=== PATIENT | male | born 1995 | race Caucasian/White ===

== ENCOUNTER → 2017-03-17 | Outpatient (CLI) | payer OTHER | LOC: FIMAGING 06:58 | PROVIDERS: ATTEND Family Medicine | DX: R10.84 Generalized abdominal pain (principal) ==

== ENCOUNTER 2017-09-05 03:02 | Emergency (ER) | payer OTHER ==
[2017-09-05] MEDS ORDERED: HYDROmorphONE/DILAUDID 1 MG/ML INJ IVP ONE (03:08)
[2017-09-05] MEDS ORDERED: ONDANSETRON 4 MG/2 ML VIAL IVP ONE (03:08)
[2017-09-05] MEDS ORDERED: NS 1,000 ML IV ONE ×3 (03:08→04:34)
--- NOTE | 2017-09-05 03:08 | EDPHY ---
H & P Stated Complaint: N/V/D x12 hours, abd pain HPI/ROS: HPI CHIEF COMPLAINT: Nausea vomiting diarrhea HISTORY OF PRESENT ILLNESS: This patient very pleasant 22-year-old male, he is otherwise healthy no significant medical history does not take any medications he presents emergency room nausea vomiting diarrhea times 12 hr. Patient reports around 4:00 p.m. yesterday he developed some nausea and vomiting. He initially had watery diarrhea that then developed into nausea vomiting. No hematemesis. He denies any fever. He states he has had some crampy abdominal pain diffusely but this has gotten better. He still complains of nausea states that he vomits once per hour usually on the hour. Unable to keep p.o. down. Last meal was yesterday. Does additionally reports some burning in his chest when he vomits. Past Medical History: No significant medical history Past Surgical History: Tonsillectomy/adenoidectomy Social History: Denies daily use drugs alcohol tobacco products. [employer] student. Family History: Noncontributory ROS REVIEW OF SYSTEMS: A comprehensive 10 point review of systems is otherwise negative aside from elements mentioned in the history of present illness. Exam Constitutional appears nontoxic, however appears dehydrated triage nursing summary reviewed, vital signs reviewed, awake/alert. Vital signs noted to be tachycardic and somewhat hypotensive at triage. Eyes normal conjunctivae and sclera, EOMI, PERRLA. HENT normal inspection, atraumatic, dry mucus membranes, no epistaxis, neck supple/ no meningismus, no raccoon eyes. Respiratory clear to auscultation bilaterally, normal breath sounds, no respiratory distress, no wheezing. Cardiovascular rate normal, regular rhythm, no murmur, no edema, distal pulses normal. Gastrointestinal soft, non-tender, no rebound, no guarding, normal bowel sounds, no distension, no pulsatile mass. Genitourinary no CVA tenderness. Musculoskeletal no midline vertebral tenderness, full range of motion, no calf swelling, no tenderness of extremities, no meningismus, good pulses, neurovascularly intact. Skin pink, warm, & dry, no rash, skin atraumatic. Neurologic awake, alert and oriented x 3, AAOx3, moves all 4 extremities equally, motor intact, sensory intact, CN II-XII intact, normal cerebellar, normal vision, normal speech. Psychiatric normal mood/affect. Heme/Lymph/Immune no lymphadenopathy. Differential Diagnosis: Includes but is not limited to in a particular order acute dehydration, acute nausea vomiting and diarrhea illness, enteritis, viral syndrome, electrolyte disturbance, doubt bowel obstruction, doubt acute appendicitis Medical Decision Making: Plan for this patient IV establishment with IV fluid bolus 2 L normal saline, 4 mg IV Zofran for nausea, check basic blood work, including electrolytes, urinalysis, and CBC and re-evaluate. Re-evaluation: [id number]: Patient feeling much better after IV fluids he said 3 L of normal saline here. Zofran. Blood work was reviewed is reassuring. His abdomen is soft nontender. He is not vomiting. He would like to go home. Prescription prescription for Zofran. He p.o. challenge well. Return precautions given. I do not feel that he needs any imaging was abdomen is abdomen is soft nontender is not on any ongoing vomiting. He does not have high white count. Most likely has some GI illness. Return precautions discussed and he understands. Source: Patient - Personal History Current Tetanus/Diphtheria Vaccine: Yes - Medical/Surgical History Hx Asthma: No Hx Chronic Respiratory Disease: No Hx Diabetes: No Hx Cardiac Disease: No Hx Renal Disease: No Hx Cirrhosis: No Hx Alcoholism: No Hx HIV/AIDS: No Hx Splenectomy or Spleen Trauma: No Other PMH: thyroid problems, - Social History Smoking Status: Never smoked Constitutional: Initial Vital Signs Temperature (C) 37.1 C 09/05/17 03:04 Heart Rate 115 H 09/05/17 03:04 Respiratory Rate 18 09/05/17 03:04 Blood Pressure 95/65 L 09/05/17 03:04 O2 Sat (%) 95 09/05/17 03:04 O2 Delivery Mode Nasal Cannula O2 (L/minute) 2 Allergies/Adverse Reactions: No Known Allergies Allergy (Unverified 09/05/17 03:07) Home Medications: Medication Instructions Recorded Ondansetron HCl [Zofran] 4 mg PO Q4-6PRN PRN #10 tablet 09/05/17 Medical Decision Making - Data Points Laboratory Results: Laboratory Results 09/05/17 03:23 09/05/17 03:23 09/05/17 09/05/17 09/05/17 04:58 03:23 03:23 WBC 9.42 10^3/uL 10^3/uL (3.80-9.50) RBC 5.30 10^6/uL 10^6/uL (4.40-6.38) Hgb 16.8 g/dL g/dL (13.7-17.5) Hct 46.6 % % (40.0-51.0) MCV 87.9 fL fL (81.5-99.8) MCH 31.7 pg pg (27.9-34.1) MCHC 36.1 g/dL g/dL (32.4-36.7) RDW 11.5 % % (11.5-15.2) Plt Count 176 10^3/uL 10^3/uL (150-400) MPV 11.6 fL fL (8.7-11.7) Neut % (Auto) 93.7 % H % (39.3-74.2) Lymph % (Auto) 2.1 % L % (15.0-45.0) [place] % (Auto) 3.7 % L % (4.5-13.0) Eos % (Auto) 0.0 % L % (0.6-7.6) Baso % (Auto) 0.3 % % (0.3-1.7) Nucleat RBC Rel Count 0.0 % % (0.0-0.2) Absolute Neuts (auto) 8.82 10^3/uL H 10^3/uL (1.70-6.50) Absolute Lymphs (auto) 0.20 10^3/uL L 10^3/uL (1.00-3.00) Absolute Monos (auto) 0.35 10^3/uL 10^3/uL (0.30-0.80) Absolute Eos (auto) 0.00 10^3/uL L 10^3/uL (0.03-0.40) Absolute Basos (auto) 0.03 10^3/uL 10^3/uL (0.02-0.10) Absolute Nucleated RBC 0.00 10^3/uL 10^3/uL (0-0.01) Immature Gran % 0.2 % % (0.0-1.1) Immature Gran # 0.02 10^3/uL 10^3/uL (0.00-0.10) Sodium 145 mEq/L H mEq/L (134-144) Potassium 4.5 mEq/L mEq/L (3.5-5.2) Chloride 104 mEq/L mEq/L (97-110) Carbon Dioxide 24 mEq/l mEq/l (22-31) Anion Gap 17 mEq/L H mEq/L (8-16) BUN 22 mg/dL mg/dL (7-23) Creatinine 1.2 mg/dL mg/dL (0.7-1.3) Estimated GFR > 60 Glucose 115 mg/dL H mg/dL (70-100) Calcium 10.0 mg/dL mg/dL (8.5-10.4) Total Bilirubin 1.3 mg/dL mg/dL (0.1-1.4) Conjugated Bilirubin 0.4 mg/dL mg/dL (0.0-0.5) Unconjugated Bilirubin 0.9 mg/dL mg/dL (0.0-1.1) AST 44 IU/L IU/L (17-59) ALT 51 IU/L IU/L (21-72) Alkaline Phosphatase 83 IU/L IU/L (38-126) Total Protein 8.1 g/dL g/dL (6.3-8.2) Albumin 4.9 g/dL g/dL (3.5-5.0) Lipase 47 IU/L IU/L (23-300) Urine Color YELLOW Urine Appearance MODERATELY TURBID Urine pH 5.0 (5.0-7.5) Ur Specific [place] 1.029 (1.002-1.030) Urine Protein NEGATIVE (NEGATIVE) Urine Ketones 1+ H (NEGATIVE) Urine Blood NEGATIVE (NEGATIVE) Urine Nitrate NEGATIVE (NEGATIVE) Urine Bilirubin NEGATIVE (NEGATIVE) Urine Urobilinogen NEGATIVE EU EU (0.2-1.0) Ur Leukocyte Esterase NEGATIVE (NEGATIVE) Urine Glucose NEGATIVE (NEGATIVE) Medications Given: Discontinued Medications Hydromorphone HCl (Dilaudid) 0.5 mg IVP EDNOW ONE Stop: 09/05/17 03:09 Last Admin: 09/05/17 03:39 Dose: 0.5 mg Sodium Chloride (Ns) 1,000 mls @ 0 mls/hr IV EDNOW ONE; Wide Open PRN Reason: Protocol Stop: 09/05/17 03:09 Last Admin: 09/05/17 03:39 Dose: 1,000 mls Sodium Chloride (Ns) 1,000 mls @ 0 mls/hr IV EDNOW ONE; Wide Open PRN Reason: Protocol Stop: 09/05/17 03:09 Last Admin: 09/05/17 03:39 Dose: 1,000 mls Sodium Chloride (Ns) 1,000 mls @ 0 mls/hr IV ONCE ONE PRN Reason: Wide Open Stop: 09/05/17 04:35 Last Admin: 09/05/17 04:37 Dose: 1,000 mls Ondansetron HCl (Zofran) 4 mg IVP EDNOW ONE Stop: 09/05/17 03:09 Last Admin: 09/05/17 03:39 Dose: 4 mg Departure - Departure Disposition: Home, Routine, Self-Care Clinical Impression: Nausea vomiting and diarrhea Condition: Good Instructions: Acute Nausea and Vomiting (ED) Additional Instructions: 1. [place] diet for next 24-48 hours. 2. Return emergency room if you have worsening abdominal pain fever vomiting. 3. Zofran for nausea. Referrals: Johan Dhaliwal DO [Primary Care Provider] - As per Instructions Prescriptions: Ondansetron HCl [Zofran] 4 mg PO Q4-6PRN PRN #10 tablet PRN Reason: Nausea/Vomiting, Use 1st
[2017-09-05 03:31] LABS: PLATELET COUNT 176 10^3/uL (150-400)
[2017-09-05 05:46] VITALS: BP 98/49; PULSE 94; RESP 18; TEMP 98.4; O2SAT 96
== END 2017-09-05 05:44 | disposition home or self-care (01) ==
DX: R11.2 Nausea with vomiting, unspecified (principal); R19.7 Diarrhea, unspecified; E86.9 Volume depletion, unspecified
CPT/HCPCS: 96374; J1170; J2405

== ENCOUNTER 2018-10-19 03:34 | Emergency (ER) | payer OTHER ==
[2018-10-19] MEDS ORDERED: NS 1,000 ML IV ONE (03:45)
--- NOTE | 2018-10-19 03:49 | EDPHY ---
H & P Stated Complaint: rapid heart beat x30 min now resolved, dizziness Time Seen by Provider: 10/19/18 03:46 HPI/ROS: HPI CHIEF COMPLAINT: Fast heart rate, right calf pain. HISTORY OF PRESENT ILLNESS: This is a 23-year-old male, [employer] student, otherwise healthy without any significant medical history, does not take any medications presents emergency room at 3:45 a.m. In the morning stating that he woke up with very fast heart rate. He did not count he is unsure how fast it was going. He states he felt lightheaded. Denies chest pain denies shortness of breath, denies pleuritic pain. He also reports that he has been having for 1 week some right calf pain. He is concerned about a blood clot. Denies any chest pain or shortness of breath, denies pleuritic pain. He states he woke up from sleep he thinks his heart was racing. This caused him great concerns he decided come the emergency room. Upon arrival to the emergency room is placed in ER room 13, denies chest pain or shortness of breath. His heart rate is 80, blood pressure 136/85, pulse ox 96% on room air. Past Medical History: Denies medical history Past Surgical History: Denies surgical history Social History: Denies drugs alcohol tobacco. [employer] student. Family History: Noncontributory ROS REVIEW OF SYSTEMS: 10 Systems were reviewed and negative with the exception of the elements mentioned in the history of present illness. Exam Constitutional appears well nontoxic no acute distress triage nursing summary reviewed, vital signs reviewed, awake/alert. Heart rate 80, blood pressure 136/ 85, pulse ox 96% on room air. Eyes normal conjunctivae and sclera, EOMI, PERRLA. HENT normal inspection, atraumatic, moist mucus membranes, no epistaxis, neck supple/ no meningismus, no raccoon eyes. Respiratory clear to auscultation bilaterally, normal breath sounds, no respiratory distress, no wheezing. Cardiovascular rate normal, regular rhythm, no murmur, no edema, distal pulses normal. Gastrointestinal soft, non-tender, no rebound, no guarding, normal bowel sounds, no distension, no pulsatile mass. Genitourinary no CVA tenderness. Musculoskeletal right lower extremity: No evidence swelling, no significant tenderness to the calf, good distal pulse, good cap refill, warm extremity, no compartment syndrome, no midline vertebral tenderness, full range of motion, no calf swelling, no tenderness of extremities, no meningismus, good pulses, neurovascularly intact. Skin pink, warm, & dry, no rash, skin atraumatic. Neurologic awake, alert and oriented x 3, AAOx3, moves all 4 extremities equally, motor intact, sensory intact, CN II-XII intact, normal cerebellar, normal vision, normal speech. Psychiatric normal mood/affect. Heme/Lymph/Immune no lymphadenopathy. Differential Diagnosis: Includes but is not limited to in a particular order: Anxiety, panic attack, cardiac arrhythmia, electrolyte disturbance, PE, pneumonia, pneumothorax, DVT Medical Decision Making: Plan for this patient IV establishment with IV fluid bolus, chest x-ray, EKG, troponin, D-dimer, ultrasound right lower extremity, and re-evaluate. Re-evaluation: Here in the emergency room 3:45 a.m. The patient is resting comfortably no acute distress has stable vital signs. EKG interpretation by me on record in [facility] system. Impression time of EKG 3:46 a.m., sinus rhythm rate of 70 there is no signs of acute ischemia no signs of cardiac arrhythmia, no signs of WPW or [place]. Unremarkable EKG. D-dimer negative. Troponin negative. EKG nonischemic. Ultrasound the right lower extremity pending. ED ultrasound of the right lower extremity Doppler faxed to me by direct radiology 4:34 a.m. No evidence of DVT in the right lower extremity. ED x-ray chest one view reviewed by myself. Negative for acute cardiopulmonary disease. Patient re-evaluated 6:07 a.m. Resting comfortably. Has no complaints denies chest pain or shortness of breath, denies palpitations. Ambulated well throughout the emergency without any difficulty in feels fine. We discussed test results including a negative D-dimer, negative troponin, and EKG that shows no acute ischemia or cardiac arrhythmia. An ultrasound reveals no DVT. A chest x-ray is unremarkable. I do encourage him to rest, stay well-hydrated, drink lots of fluids. Also distally recommend following up with Cardiology for fast heart rate palpitations Also I discussed return precautions with him he understands return emergency room if develops chest pain, shortness of breath, fast heart rate, syncope, not doing well he understands this. Source: Patient - Personal History Current Tetanus/Diphtheria Vaccine: Unsure - Medical/Surgical History Hx Asthma: No Hx Chronic Respiratory Disease: No Hx Diabetes: No Hx Cardiac Disease: No Hx Renal Disease: No Hx Cirrhosis: No Hx Alcoholism: No Hx HIV/AIDS: No Hx Splenectomy or Spleen Trauma: No Other PMH: thyroid problems, - Social History Smoking Status: Never smoked Constitutional: Initial Vital Signs Temperature (C) 36.4 C 10/19/18 03:36 Heart Rate 82 10/19/18 03:36 Respiratory Rate 16 10/19/18 03:36 Blood Pressure 120/71 10/19/18 03:36 O2 Sat (%) 97 10/19/18 03:36 O2 Delivery Mode Room Air Allergies/Adverse Reactions: No Known Allergies Allergy (Verified 10/19/18 03:38) Home Medications: Medication Instructions Recorded NK [No Known Home Meds] 10/19/18 Medical Decision Making - Data Points Laboratory Results: Laboratory Results 10/19/18 03:50 10/19/18 03:50 10/19/18 10/19/18 10/19/18 03:54 03:50 03:50 WBC RBC Hgb Hct MCV MCH MCHC RDW Plt Count MPV Neut % (Auto) Lymph % (Auto) [place] % (Auto) Eos % (Auto) Baso % (Auto) Nucleat RBC Rel Count Absolute Neuts (auto) Absolute Lymphs (auto) Absolute Monos (auto) Absolute Eos (auto) Absolute Basos (auto) Absolute Nucleated RBC Immature Gran % Immature Gran # D-Dimer 0.27 ug/mLFEU ug/mLFEU (0.00-0.50) Sodium 140 mEq/L mEq/L (135-145) Potassium 3.6 mEq/L mEq/L (3.5-5.2) Chloride 107 mEq/L mEq/L (97-110) Carbon Dioxide 27 mEq/l mEq/l (22-31) Anion Gap 6 mEq/L mEq/L (6-14) BUN 16 mg/dL mg/dL (7-23) Creatinine 1.2 mg/dL mg/dL (0.7-1.3) Estimated GFR > 60 Glucose 85 mg/dL mg/dL (70-100) Calcium 8.7 mg/dL mg/dL (8.5-10.4) Magnesium 2.2 mg/dL mg/dL (1.6-2.3) Total Bilirubin 0.9 mg/dL mg/dL (0.1-1.4) Conjugated Bilirubin 0.3 mg/dL mg/dL (0.0-0.5) Unconjugated Bilirubin 0.6 mg/dL mg/dL (0.0-1.1) AST 36 IU/L IU/L (17-59) ALT 31 IU/L IU/L (21-72) Alkaline Phosphatase 79 IU/L IU/L (38-126) POC Troponin I 0.00 ng/mL ng/mL (0.00-0.08) NT-Pro-B Natriuret Pep 27 pg/mL pg/mL (0-125) Total Protein 6.9 g/dL g/dL (6.3-8.2) Albumin 4.0 g/dL g/dL (3.5-5.0) 10/19/18 03:50 WBC 5.94 10^3/uL 10^3/uL (3.80-9.50) RBC 4.86 10^6/uL 10^6/uL (4.40-6.38) Hgb 15.1 g/dL g/dL (13.7-17.5) Hct 43.1 % % (40.0-51.0) MCV 88.7 fL fL (81.5-99.8) MCH 31.1 pg pg (27.9-34.1) MCHC 35.0 g/dL g/dL (32.4-36.7) RDW 11.8 % % (11.5-15.2) Plt Count 167 10^3/uL 10^3/uL (150-400) MPV 11.6 fL fL (8.7-11.7) Neut % (Auto) 36.5 % L % (39.3-74.2) Lymph % (Auto) 48.5 % H % (15.0-45.0) [place] % (Auto) 10.4 % % (4.5-13.0) Eos % (Auto) 3.7 % % (0.6-7.6) Baso % (Auto) 0.7 % % (0.3-1.7) Nucleat RBC Rel Count 0.0 % % (0.0-0.2) Absolute Neuts (auto) 2.17 10^3/uL 10^3/uL (1.70-6.50) Absolute Lymphs (auto) 2.88 10^3/uL 10^3/uL (1.00-3.00) Absolute Monos (auto) 0.62 10^3/uL 10^3/uL (0.30-0.80) Absolute Eos (auto) 0.22 10^3/uL 10^3/uL (0.03-0.40) Absolute Basos (auto) 0.04 10^3/uL 10^3/uL (0.02-0.10) Absolute Nucleated RBC 0.00 10^3/uL 10^3/uL (0-0.01) Immature Gran % 0.2 % % (0.0-1.1) Immature Gran # 0.01 10^3/uL 10^3/uL (0.00-0.10) D-Dimer Sodium Potassium Chloride Carbon Dioxide Anion Gap BUN Creatinine Estimated GFR Glucose Calcium Magnesium Total Bilirubin Conjugated Bilirubin Unconjugated Bilirubin AST ALT Alkaline Phosphatase POC Troponin I NT-Pro-B Natriuret Pep Total Protein Albumin Medications Given: Discontinued Medications Sodium Chloride (Ns) 1,000 mls @ 0 mls/hr IV EDNOW ONE; Wide Open PRN Reason: Protocol Stop: 10/19/18 03:46 Last Admin: 10/19/18 03:49 Dose: 1,000 mls Point of Care Test Results: Chemistry 10/19/18 03:54 POC Troponin I 0.00 ng/mL ng/mL (0.00-0.08) Departure - Departure Disposition: Home, Routine, Self-Care Clinical Impression: Palpitations Condition: Good Instructions: Heart Palpitations (ED) Additional Instructions: 1. Rest and stay well-hydrated. 2. Return to the emergency room if develops worsening symptoms 3. Rest no significant strenuous activity. 4. Make sure to drink lots of fluids 5. Follow up with Cardiology about you're heart palpitations or fast heart rate. Referrals: Johan Dhaliwal DO [Primary Care Provider] - As per Instructions Jareth Randle MD [Medical Doctor] - As per Instructions
[2018-10-19 04:02] LABS: PLATELET COUNT 167 10^3/uL (150-400)
[2018-10-19 06:20] VITALS: BP 116/77
--- NOTE | 2018-10-20 08:16 | CPEKG ---
Test Reason : OPEN Blood Pressure : / mmHG Vent. Rate : 070 BPM Atrial Rate : 068 BPM P-R Int : 161 ms QRS Dur : 093 ms QT Int : 396 ms P-R-T Axes : 047 054 048 degrees QTc Int : 428 ms Sinus rhythm Confirmed by Ralph Schwab ([id number]) on 10/20/2018 8:15:54 AM Referred By: PHYSICIAN ED Confirmed By:Ralph Schwab
== END 2018-10-19 06:26 | disposition home or self-care (01) ==
DX: R00.2 Palpitations (principal); M79.661 Pain in right lower leg; E86.9 Volume depletion, unspecified
CPT/HCPCS: 84484-ER